=== PATIENT | female | born 1990 | race Caucasian/White ===

== ENCOUNTER 2017-12-09 14:35 | Outpatient (CLI) | payer OTHER ==
--- NOTE | 2017-12-09 18:47 | RAD ---
LEFT FOOT THREE VIEWS: 12/09/17 No fracture or significant bony abnormality was seen. There is no periosteal reaction. The toes showe d no acute bony changes. IMPRESSION: No acute finding. POS: [facility]
== END 2017-12-09 14:36 | disposition home or self-care (01) ==
LOC: BURRAD 14:35
PROVIDERS: ATTEND Physician Assistant
DX: M79.675 Pain in left toe(s) (principal)

== ENCOUNTER 2019-03-30 11:01 | Outpatient (CLI) | payer OTHER ==
--- NOTE | 2019-03-30 12:31 | RAD ---
LUMBAR SPINE SERIES 3 VIEWS: Date: 03/30/2019 HISTORY: Left-sided sciatica. FINDINGS: Vertebral bodies are normal in height. Small osteophytes are seen without significant disc narrowing. Pedicles are intact. No spondylolisthesis. IMPRESSION: Minimal osteophytic changes of the spine. POS: [facility]
== END 2019-03-30 11:02 | disposition home or self-care (01) ==
LOC: BURRAD 11:01
PROVIDERS: ATTEND Physician Assistant
DX: M54.32 Sciatica, left side (principal)
CPT/HCPCS: 72100